=== PATIENT | male | born 1945 | race Caucasian/White ===

== ENCOUNTER 2025-05-22 15:47 | Observation (INO) | payer MEDICARE ==
[~2025-05-22] VITALS: Ht 182.9 cm; Wt 92.0 kg
[2025-05-22] MEDS ORDERED: Calcium Carbon500 MG PO (16:10)
[2025-05-22] MEDS ORDERED: B-12500 MC2 PO (16:10)
[2025-05-22] MEDS ORDERED: FAMO20 (16:10)
[2025-05-22] MEDS ORDERED: VITAMIN D5000 UNIT PO (16:10)
[2025-05-22] MEDS ORDERED: KETO15TC TOP ×2 (16:11→16:12)
[2025-05-22] MEDS ORDERED: FLUT1DIS2 INH (16:11)
[2025-05-22] MEDS ORDERED: LAMO100 PO (16:13)
[2025-05-22] MEDS ORDERED: LISI5 PO (16:15)
[2025-05-22] MEDS ORDERED: Acetaminophen650 M1 PO (16:16)
[2025-05-22] MEDS ORDERED: BISA10S PR (16:17)
[2025-05-22] MEDS ORDERED: ALBU90OI INH (16:17)
[2025-05-22] MEDS ORDERED: ONDA4 PO (16:19)
[2025-05-22] MEDS ORDERED: LORA2L SC (16:19)
[2025-05-22] MEDS ORDERED: LEVE500 PO (16:20)
[2025-05-22 16:52] LABS: Alanine Aminotransfer (ALT/SGP 96.0 U/L (12-78); Albumin, Blood 2.9 g/dL (3.4-5.0); Albumin/Globulin Ratio 0.7 (0.8-1.8); Anion Gap 12.0 mmol/L (3-11); Aspartate Aminotrans (AST/SGOT 19.0 U/L (12-37); Bilirubin, Total 0.9 mg/dL (0.1-1.0); Blood Urea Nitrogen 15.0 mg/dL (8-24); CO2, Blood 23.0 mmol/L (21-32); Calcium, Blood 9.6 mg/dL (8.5-10.1); Chloride, Blood 97.0 mmol/L (98-108); Creatinine, Blood 1.86 mg/dL (0.60-1.20); Globulin, Blood 4.0 g/dL (2.2-4.0); Glucose, Blood 130.0 mg/dL (70-99); Potassium, Blood 4.2 mmol/L (3.5-5.5); Sodium, Blood 128.0 mmol/L (136-145); Total Protein, Blood 6.9 g/dL (6.4-8.2)
[2025-05-22 16:56] LABS: BASOPHILS ABSOLUTE AUTO 0.05 K/mm3 (0.00-0.23); BASOPHILS PERCENT AUTO 0 % (0-2); EOSINOPHILS ABSOLUTE AUTO 0.01 K/mm3 (0.00-0.68); EOSINOPHILS PERCENT AUTO 0 % (0-6); Hematocrit 46.0 % (37.0-53.0); Hemoglobin 15.6 g/dL (13.5-17.5); IMMATURE GRAN ABSOLUTE AUTO 0.17 K/mm3 (0.00-0.10); IMMATURE GRAN PERCENT AUTO 1 % (0-1); LYMPHOCYTES ABSOLUTE AUTO 1.34 K/mm3 (0.84-5.20); LYMPHOCYTES PERCENT AUTO 7 % (21-46); MONOCYTES ABSOLUTE AUTO 2.31 K/mm3 (0.16-1.47); MONOCYTES PERCENT AUTO 12 % (4-13); Mean Corpuscular HGB Conc 33.9 g/dL (31.5-36.5); Mean Corpuscular Volume 91 fL (80-100); NEUTROPHILS ABSOLUTE AUTO 15.90 K/mm3 (1.96-9.15); NEUTROPHILS PERCENT AUTO 80 % (41-73); NRBC ABSOLUTE 0.00 K/mm3 (0.00-0.02); NRBC Auto 0.0 /100 WBC (0.0-0.2); Platelet Count 276 K/mm3 (150-400); RDW Coefficient Variation 13.4 % (11.7-14.2); RDW Standard Deviation 44.9 fL (35.1-46.3)
[2025-05-22] MEDS ORDERED: Ampicillin Sod/Sulbactam Sod 3 GM in NS 100 ML IV ONE (19:10)
[2025-05-22] MEDS ORDERED: NS 1,000 ML IV SCH ×2 (19:10→21:15)
[2025-05-22] MEDS ORDERED: FLU VACC TS2025(65UP)/MF59C/PF 45 MCG/0.5 ML SYRINGE IM SCH (21:15)
[2025-05-22] MEDS ORDERED: Ondansetron HCl 2 MG / ML 2ML Vial IV PRN (21:15)
[2025-05-22 22:36] VITALS: BP 111/65
[2025-05-22 22:53] LABS: Source, Urine Condom Cath
[2025-05-22 22:57] LABS: Bilirubin, Urine Neg (Neg); Glucose Qualitative, Urine Neg (Neg); Ketones, Urine Neg (Neg); Leukocyte Esterase, Urine 1+ (Neg); Protein, Urine 2+ (Neg); Specific Gravity, Urine 1.010 (1.003-1.022); Urobilinogen, Urine NORM (Normal)
[2025-05-22 22:58] LABS: Color, Urine Yellow (P-Yellow)
[2025-05-22] MEDS ORDERED: LevETIRAcetam 100 MG/ML 5ML ORAL SYR PO ONE (23:00)
[2025-05-22 23:16] LABS: Red Blood Cells, Urine Not Seen /hpf (0-2); White Blood Cells, Urine 0-2 /hpf (0-5)
[2025-05-23] VITALS (15 sets, daily range): BP systolic 106–156; BP diastolic 56–97
[2025-05-23] MEDS ORDERED: Ampicillin Sod/Sulbactam Sod 3 GM in NS 100 ML IV SCH
--- NOTE | 2025-05-23 00:03 | NUR ---
TRANSFER NOTE: PT AOX4, DIFFICULTY SPEAKING DUE TO TBI, BUT ABLE TO ANSWER YES OR NO QUESTIONS APPROPRIATELY. SOME DIFFICULTY SWALLOWING, SISTER SAYS NORMAL AT BL BUT HAS GOTTEN WORSE OVER THE YEARS. TOLERATES PO INTAKE WHILE LAYING ON L SIDE BETTER. PT WHEEZY BUT SATTING WELL ON 3L NC.
--- NOTE | 2025-05-23 04:30 | NUR ---
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 PT ABLE TO ANSWER YES OR NO QUESTIONS. STRUGGLED A BIT WITH THIN LIQUIDS AND PO ORAL KEPPRA THIS PM. PT'S SISTER/ GUARDIAN STATED HIS SWALLOWING HAS GOTTEN WORSE. PT MADE NPO AT MIDNIGHT. VSS STABLE AND CURRENTLY SATTING ~95 ON 3L NC. PT IN BED SLEEPING, BED IN LOWEST POSITION, CALL LIGHT IN REACH. CONTINUING CARE.
[2025-05-23 05:38] LABS: BASOPHILS ABSOLUTE AUTO 0.04 K/mm3 (0.00-0.23); BASOPHILS PERCENT AUTO 0 % (0-2); EOSINOPHILS ABSOLUTE AUTO 0.10 K/mm3 (0.00-0.68); EOSINOPHILS PERCENT AUTO 1 % (0-6); Hematocrit 42.1 % (37.0-53.0); Hemoglobin 13.7 g/dL (13.5-17.5); IMMATURE GRAN ABSOLUTE AUTO 0.14 K/mm3 (0.00-0.10); IMMATURE GRAN PERCENT AUTO 1 % (0-1); LYMPHOCYTES ABSOLUTE AUTO 1.25 K/mm3 (0.84-5.20); LYMPHOCYTES PERCENT AUTO 8 % (21-46); MONOCYTES ABSOLUTE AUTO 1.35 K/mm3 (0.16-1.47); MONOCYTES PERCENT AUTO 9 % (4-13); Mean Corpuscular HGB Conc 32.5 g/dL (31.5-36.5); Mean Corpuscular Volume 92 fL (80-100); NEUTROPHILS ABSOLUTE AUTO 11.97 K/mm3 (1.96-9.15); NEUTROPHILS PERCENT AUTO 81 % (41-73); NRBC ABSOLUTE 0.00 K/mm3 (0.00-0.02); NRBC Auto 0.0 /100 WBC (0.0-0.2); Platelet Count 255 K/mm3 (150-400); RDW Coefficient Variation 13.5 % (11.7-14.2); RDW Standard Deviation 46.3 fL (35.1-46.3)
[2025-05-23 05:56] LABS: Prothrombin Time Results 12.2 Sec (9.7-11.5)
[2025-05-23 05:58] LABS: Anion Gap 7.0 mmol/L (3-11); Blood Urea Nitrogen 15.0 mg/dL (8-24); CO2, Blood 29.0 mmol/L (21-32); Calcium, Blood 9.3 mg/dL (8.5-10.1); Chloride, Blood 101.0 mmol/L (98-108); Creatinine, Blood 1.07 mg/dL (0.60-1.20); Glucose, Blood 133.0 mg/dL (70-99); Potassium, Blood 3.8 mmol/L (3.5-5.5); Sodium, Blood 133.0 mmol/L (136-145)
[2025-05-23] MEDS ORDERED: Ipratropium/Albuterol SulF 2.5-0.5MG/3 ML Amp INH PRN (08:50)
[2025-05-23] MEDS ORDERED: Formoterol/Mometasone MDI 5/100 mcg 13 GM INH SCH (08:50)
[2025-05-23] MEDS ORDERED: Lactobacil 2-S.Thermo-Bifido 1 1 Cap PO SCH (09:00)
--- NOTE | 2025-05-23 09:00 | NUR ---
BLOODY BOWEL MOVEMEMENT PATIENT ATTEMPTED TO HAVE BM ON BEDSIDE COMMODE. PATIENT COMPLAINING OF CONSTIPATION WITH NO BOWEL MOVEMENT BUT APPROX 10ML JONO RED BLOOD IN BEDSIDE COMMODE AFTER ATTEMPT. PATIENT WITH HX OF INTERNAL AND EXTERNAL HEMMORHOIDS. MD NOTIFIED AND NEW ORDERS RECIEVED FOR PREP H AND BOWEL MEDS.
[2025-05-23] MEDS ORDERED: FentaNYL Citrate 50 MCG/ML 2 ML Injection ONE ×2 (11:20→14:22)
[2025-05-23] MEDS ORDERED: Sugammadex Sodium 200 MG/2ML SDV (100 MG/ML) ONE (11:20)
[2025-05-23] MEDS ORDERED: Rocuronium Bromide 10 MG/ML 5ML Injection IV ONE (11:21)
[2025-05-23] MEDS ORDERED: Ondansetron HCl 2 MG / ML 2ML Vial ONE (11:21)
[2025-05-23] MEDS ORDERED: Dexamethasone Sod Phos 10 MG/ML 1ML VIAL ONE (11:21)
[2025-05-23] MEDS ORDERED: Bupivacaine 0.5% HCl 5 MG/ML 30MLVIAL ONE (12:08)
--- NOTE | 2025-05-23 12:58 | NUR ---
PATIENT LEFT FOR CHOLECYSTECTOMY PATIENT LEFT FOR SURGERY AT 1250 VIE IZABELA, IV ABX SENT WITH PATIENT AND RECIEVING RN. SISTER, TIN AT BEDSIDE.
[2025-05-23] MEDS ORDERED: HYDROmorphone HCl/Pf 1MG SYR IV PRN ×2 (13:55→15:30)
[2025-05-23] MEDS ORDERED: FentaNYL Citrate 50 MCG/ML 2 ML Injection IV PRN ×3 (13:55)
[2025-05-23] MEDS ORDERED: Metoclopramide HCl 5MG / ML 2ML Vial IV PRN (13:55)
[2025-05-23] MEDS ORDERED: Ondansetron HCl 2 MG / ML 2ML Vial IV PRN (13:55)
[2025-05-23] MEDS ORDERED: Phenyleph/Mineral Oil/Petrolat 1 APPLIC/57 GM Tube PR SCH (14:00)
--- NOTE | 2025-05-23 18:37 | NUR ---
SHIFT SUMMARY PATIENT A/OX3 THIS AM, PLEASANT AND COOPERATIVE WITH CARE. SISTER. TIN AT BEDSIDE, INFORMED THIS RN THAT PATIENT WAS ON MODIFIED DIET AT THE [facility]. DURING MD ROUNDS REQUESTED A SPEECH EVAL, WHICH WAS UNABLE TO BE COMPLETED TODAY DUE TO LAP SOLIS. ST REQUESTED RECORDS AND FOUND PATIENT WAS HONEY THICK FLUIDS WITH MINCED AND MOIST DIET AND TAKES MEDS CRUSHED, IF MED UNABLE TO BE CRUSHED PATIENT TAKES THEM WHOLE WITH APPLESAUCE. PATIENT REMOVED FROM SUPPLEMENTAL OXYGEN THIS MORNING AND TOELRATING ROOM AIR WELL WITH SPO2 ABOVE 90%. RESPIRATORY THERAPY CALLED FOR BREATHING TX DUE TO WHEEZING. PUREWICK IN PLACE. RETURNED FROM SURGERY THIS AFTERNOON, UPON RETURN PATIENT A/OX1, CONSUFED, LETHARGIC. PATIENT WITH NO VOID SINCE RETURN, BLADDER SCAN SHOWED >900ML, MD NOTIFIED AND ORDER TO STRAIGHT CATH PER POLICY. PATIENT THEN VOIDED, BLADDER SCAN POST VOID SHOWED 400ML, STRAIGHT CATH PERFORMED AND ONLY 150ML URINE OBTAINED FROM STRAIGHT CATH. 4 LAP SITES OPEN TO AIR WITH TISSUE ADHESIVE, NO DRAINAGE NOTED. PATIENT WITH DISTENDED ABDOMEN. CURRENTLY ON 2 LPM SUPPLEMENTAL OXYGEN VIA NASAL CANNULA, SPO2 DROPPED TO 87% ON RA. PATIENT DENIES PAIN. SISTER, TIN, AT BEDSIDE AND UPDATED ON PATIENT STATUS. NO OTHER CONCERNS AT THIS TIME, WILL CONTINUE TO MONITOR.
[2025-05-24 03:28] VITALS: BP 137/78
[2025-05-24 04:49] LABS: BASOPHILS ABSOLUTE AUTO 0.02 K/mm3 (0.00-0.23); BASOPHILS PERCENT AUTO 0 % (0-2); EOSINOPHILS ABSOLUTE AUTO 0.00 K/mm3 (0.00-0.68); EOSINOPHILS PERCENT AUTO 0 % (0-6); Hematocrit 39.2 % (37.0-53.0); Hemoglobin 13.3 g/dL (13.5-17.5); IMMATURE GRAN ABSOLUTE AUTO 0.14 K/mm3 (0.00-0.10); IMMATURE GRAN PERCENT AUTO 1 % (0-1); LYMPHOCYTES ABSOLUTE AUTO 0.68 K/mm3 (0.84-5.20); LYMPHOCYTES PERCENT AUTO 5 % (21-46); MONOCYTES ABSOLUTE AUTO 0.82 K/mm3 (0.16-1.47); MONOCYTES PERCENT AUTO 6 % (4-13); Mean Corpuscular HGB Conc 33.9 g/dL (31.5-36.5); Mean Corpuscular Volume 93 fL (80-100); NEUTROPHILS ABSOLUTE AUTO 11.66 K/mm3 (1.96-9.15); NEUTROPHILS PERCENT AUTO 87 % (41-73); NRBC ABSOLUTE 0.00 K/mm3 (0.00-0.02); NRBC Auto 0.0 /100 WBC (0.0-0.2); Platelet Count 287 K/mm3 (150-400); RDW Coefficient Variation 13.5 % (11.7-14.2); RDW Standard Deviation 45.9 fL (35.1-46.3)
[2025-05-24 05:16] LABS: Anion Gap 8.0 mmol/L (3-11); Blood Urea Nitrogen 12.0 mg/dL (8-24); CO2, Blood 26.0 mmol/L (21-32); Calcium, Blood 8.3 mg/dL (8.5-10.1); Chloride, Blood 104.0 mmol/L (98-108); Creatinine, Blood 0.64 mg/dL (0.60-1.20); Glucose, Blood 152.0 mg/dL (70-99); Magnesium, Blood 2.2 mg/dL (1.6-2.4); Phosphorus, Blood 2.6 mg/dL (2.5-4.9); Potassium, Blood 4.2 mmol/L (3.5-5.5); Sodium, Blood 134.0 mmol/L (136-145)
--- NOTE | 2025-05-24 05:34 | NUR ---
SHIFT SUMMARY: PT AOX3-4, SLURRED SPEECH DUE TO PRIOR TBI WHICH IS BL. PLEASANT AND COOPERATIVE IN CARE. ON 1L O2 SATTING WELL, RA AT BL. WAS VERY DROWSY AT START OF SHIFT BUT HAS AWOKEN. HAD A LARGE INCONT VOID LAST NIGHT, BUT WAS ABLE TO VOID. INCISION SITES ARE CLEAN AND DRI. NO COMPLAINTS OF PAIN OR DISCOMFORT. CLAIMS TO BE FEELING BETTER, BUT "LOOPY". PT IN BED RESTING, BED IN LOWEST POSITION, CALL LIGHT IN REACH. CONTINUING CARE.
[2025-05-24 07:41] VITALS: BP 119/69
[2025-05-24] MEDS ORDERED: Heparin Sodium,Porcine 5,000 UNIT/0.5 ML SDV SC SCH (08:00)
[2025-05-24] MEDS ORDERED: LevETIRAcetam 100 MG/ML 5ML ORAL SYR PO SCH (09:00)
--- NOTE | 2025-05-24 16:30 | NUR ---
REPORTED TO RUSTY PICKERING TO TAKE OVER CARE OF THIS PT FROM NOW 0 UNTIL HARJEET OF SHIFT
[2025-05-24 16:34] VITALS: BP 130/68
--- NOTE | 2025-05-24 17:53 | NUR ---
ASSUMED CARE OF PATIENT AT 1625. FAMILY IN ROOM WITH PATIENT. PATIENT UP TO CHAIR WITH ASSIST AND USE OF WALKER AND GAITBELT. DENIES NEEDS AT THIS TIME. CALL LIGHT WITHIN REACH, CHAIR LOCKED AND ALARM IN PLACE FOR SAFETY.
--- NOTE | 2025-05-24 18:33 | NUR ---
PATIENT IS ALERT AND ORIENTED X2-3; PLEASANT AND COOPERATIVE WITH CARE; IMPULSIVE AT TIMES AND BED/CHAIR ALARM IN PLACE FOR SAFETY. NO ACUTE CHANGES SINCE ASSUMING CARE OF PATIENT. PATIENT DENIES CP OR PRESSURE, N/V/D, SOB OR PAIN AT THIS TIME. PATIENT WITH CALL LIGHT WITHIN REACH AND CHAIR LOCKED FOR SAFETY. WILL CONTINUE TO MONITOR UNTIL NEXT SHIFT NURSE ARRIVES AND REPORT IS GIVEN.
[2025-05-24 19:58] VITALS: BP 103/70
[2025-05-25 03:57] VITALS: BP 125/68
--- NOTE | 2025-05-25 04:09 | NUR ---
SHIFT SUMMARY PATIENT ADMITTED FOR ACUTE CHOLECYSTITIS. VSS THROUGHOUT THIS SHIFT. DNR CODE STATUS. HOPEFUL FOR DISCHARGE TODAY. LAP SOLIS COMPLETED ON 05/23. PATIENT ON THICKENED LIQUIDS DUE TO TROUBLE SWALLOWING. PATIENT HAD BRIEF CHOKING SPELL WHEN GIVEN LIQUID KEPRA THIS SHIFT. PATIENT IMPULSIVE ATTEMPTED TO GET OUT OF CHAIR AND BED BY SELF WITH NO WALKER. BED IN LOWEST POSITION. CALL LIGHT WITHIN REACH. BED RAILS UP X2. BED ALARM ON FOR SAFETY.
[2025-05-25 04:34] LABS: BASOPHILS ABSOLUTE AUTO 0.03 K/mm3 (0.00-0.23); BASOPHILS PERCENT AUTO 0 % (0-2); EOSINOPHILS ABSOLUTE AUTO 0.05 K/mm3 (0.00-0.68); EOSINOPHILS PERCENT AUTO 0 % (0-6); Hematocrit 37.1 % (37.0-53.0); Hemoglobin 12.3 g/dL (13.5-17.5); IMMATURE GRAN ABSOLUTE AUTO 0.11 K/mm3 (0.00-0.10); IMMATURE GRAN PERCENT AUTO 1 % (0-1); LYMPHOCYTES ABSOLUTE AUTO 1.57 K/mm3 (0.84-5.20); LYMPHOCYTES PERCENT AUTO 14 % (21-46); MONOCYTES ABSOLUTE AUTO 1.15 K/mm3 (0.16-1.47); MONOCYTES PERCENT AUTO 10 % (4-13); Mean Corpuscular HGB Conc 33.2 g/dL (31.5-36.5); Mean Corpuscular Volume 93 fL (80-100); NEUTROPHILS ABSOLUTE AUTO 8.40 K/mm3 (1.96-9.15); NEUTROPHILS PERCENT AUTO 74 % (41-73); NRBC ABSOLUTE 0.00 K/mm3 (0.00-0.02); NRBC Auto 0.0 /100 WBC (0.0-0.2); Platelet Count 314 K/mm3 (150-400); RDW Coefficient Variation 13.5 % (11.7-14.2); RDW Standard Deviation 46.4 fL (35.1-46.3)
[2025-05-25 05:10] LABS: Anion Gap 7.0 mmol/L (3-11); Blood Urea Nitrogen 9.0 mg/dL (8-24); CO2, Blood 27.0 mmol/L (21-32); Calcium, Blood 8.2 mg/dL (8.5-10.1); Chloride, Blood 102.0 mmol/L (98-108); Creatinine, Blood 0.64 mg/dL (0.60-1.20); Glucose, Blood 120.0 mg/dL (70-99); Magnesium, Blood 2.2 mg/dL (1.6-2.4); Phosphorus, Blood 1.4 mg/dL (2.5-4.9); Potassium, Blood 3.8 mmol/L (3.5-5.5); Sodium, Blood 132.0 mmol/L (136-145)
[2025-05-25] MEDS ORDERED: Sodium Phosphate Mono/Dibasic 250 MG Tab PO ONE ×2 (06:25→09:15)
[2025-05-25 07:34] VITALS: BP 138/86
[2025-05-25] MEDS ORDERED: Docusate Sodium/Senna 1 Tab PO SCH (09:00)
--- NOTE | 2025-05-25 13:50 | NUR ---
PT DC'D BACK TO THE [facility], [facility] HERE AT 1220 TO TRANSFER PT TO FACILITY. CALLED REPORT TO PRAMOD AT 1140- SENT WITH BELONGINGS. CHANGED ATTENDS BEFORE DC.
== END 2025-05-25 12:28 | disposition home or self-care (01) ==
LOC: ER 15:47 → MEDS 15:48 → ENPENDDIS 05-24 17:31 → MEDS 05-25 12:28
PROVIDERS: Emergency Medicine; Student in an Organized Health Care Education/Training Program; Surgery; ADMIT Hospitalist
PROC: 0FT44ZZ Resection of Gallbladder, Percutaneous Endoscopic Approach (ICD-10-PCS; principal; 2025-05-23 13:00)
DX: A41.9 Sepsis, unspecified organism (principal); K80.00 Calculus of gallbladder with acute cholecystitis without obstruction; K82.1 Hydrops of gallbladder; N17.9 Acute kidney failure, unspecified; J96.01 Acute respiratory failure with hypoxia; J44.89 Other specified chronic obstructive pulmonary disease; R13.12 Dysphagia, oropharyngeal phase; K64.9 Unspecified hemorrhoids; I10 Essential (primary) hypertension; E87.1 Hypo-osmolality and hyponatremia; G40.909 Epilepsy, unspecified, not intractable, without status epilepticus; Z66 Do not resuscitate; Z87.820 Personal history of traumatic brain injury; Z79.899 Other long term (current) drug therapy
CPT/HCPCS: 36415; 51701; 70450; 71046; 74177; 74230; 80048; 80053; 81001; 83605; 83690; 83735; 84100; 84484; 85025; 85610; 87040; 88304; 92610; 92611; 93005; 93010; 94640; 94664; 94760; 96361; 96365-59; 96366; 96367; 96372; 96375; 96376; 97162; 97530; 99285-25; A6590; A9270; G0378; J0295; J1100; J1644; J1953; J2405; J2704; J3010; J7030; Q9967